=== PATIENT | male | born 1960 | race Caucasian/White ===

== ENCOUNTER 2025-05-03 21:56 | Inpatient (IN) | payer MEDICAID ==
[~2025-05-03] VITALS: Ht 175.3 cm; Wt 62.2 kg
[~2025-05-03 21:56] MED LIST: ALBU18HF12 IH; AMIO200T8 PO; APIX5TAB PO; ATOR20TA65 PO; BENZ1LOZ50 PO; CETI10TA58 PO; CLOT15CR23 TP; DOXY50 PO; FLUT1BLS19 IH; FURO20TA4 PO; IPRA4AER IH; LISI5TAB21 PO; METO25 PO; PRED-729 PO
[2025-05-03] MEDS ORDERED: 0.9% SODIUM CHLORIDE 10 ML SYRINGE IVP PRN (22:45)
[2025-05-03] MEDS: CefTRIAXone 1 GM/DEXTROSE 50 ML IV ONE (23:02)
[2025-05-03] MEDS: SODIUM CHLORIDE 0.9% 1,000 ML IV ONE (23:03)
[2025-05-03 23:07] LABS: PLATELET COUNT (AUTO) 113 K/uL (150-450); RED BLOOD CELL COUNT(AUTO) 4.08 MIL/uL (4.50-5.90); RED CELL DISTRIBUTION WIDTH 13.7 % (11.5-14.5); WHITE BLOOD COUNT (AUTO) 14.3 K/uL (4.5-11.0)
[2025-05-03 23:15] LABS: CALCIUM, TOTAL 9.1 mg/dL (8.8-10.5); CREATININE 1.11 mg/dL (0.60-1.30); GLOMERULAR FILTR. RATE CALC > 60 mL/min (>60); GLUCOSE,RANDOM 131 mg/dL (70-110); SODIUM SERUM 130 mmol/L (136-145); UREA NITROGEN, BLOOD 44 mg/dL (7-18)
[2025-05-03 23:25] LABS: LACTIC ACID 1.8 mmol/L (0.4-2.0); TROPONIN I-HIGH SENSITIVITY 36 ng/L (<76)
[2025-05-04] VITALS (7 sets, daily range): BP systolic 104–124; BP diastolic 58–77; PULSE 59–80; RESP 18–20; TEMP 97.5–98.2; O2SAT 93–98
[2025-05-04] MEDS: IPRATROPIUM BROMIDE 0.5 MG/2.5 ML NEB SOLUTION NEB ONE (00:11)
[2025-05-04] MEDS: ALBUTEROL SULFATE 2.5 MG/0.5 ML NEB SOLUTION NEB ONE (00:11)
[2025-05-04] MEDS: AZITHROMYCIN 500 MG/NS 250 ML IV ONE (00:57)
[2025-05-04 01:03] LABS: COVID AG,FIA SOURCE NASAL SWAB
[2025-05-04 01:15] LABS: APPEARANCE,URINE CLEAR (CLEAR); GLUCOSE, URINE (UA) NEGATIVE (NEGATIVE); LEUKOCYTE ESTERASE ,URINE NEGATIVE (NEGATIVE); NITRATE,URINE NEGATIVE (NEGATIVE); OCCULT BLOOD,URINE NEGATIVE (NEGATIVE); SPECIFIC GRAVITIY, URINE 1.022 (1.003-1.030)
[2025-05-04 01:19] LABS: INFLUENZA TYPE A NEGATIVE FOR TYPE A (NEGATIVE); INFLUENZA TYPE B NEGATIVE FOR TYPE B (NEGATIVE); SARS-COV2 (COVID) ANTIGEN,FIA Negative (Negative)
[2025-05-04] MEDS: ONDANSETRON HCL 4 MG/2 ML VIAL IVP ONE (02:06)
[2025-05-04] MEDS: FUROSEMIDE 40 MG/4 ML VIAL IVP ONE (05:16)
[2025-05-04] MEDS ORDERED: IPRATROPIUM BROMIDE 0.5 MG/2.5 ML NEB SOLUTION NEB PRN (05:45)
[2025-05-04] MEDS ORDERED: ALBUTEROL SULFATE 2.5 MG/0.5 ML NEB SOLUTION NEB PRN (05:45)
[2025-05-04] MEDS: FUROSEMIDE 20 MG/2 ML VIAL IVP SCH (09:00)
[2025-05-04] MEDS: AMIODARONE HCL 200 MG TABLET PO SCH (09:17)
[2025-05-04] MEDS: METOPROLOL TARTRATE 25 MG TABLET PO SCH (09:18)
[2025-05-04] MEDS: GuaiFENesin SR 600 MG ER TABLET PO SCH (09:18)
[2025-05-04] MEDS: ATORVASTATIN CALCIUM 20 MG TABLET PO SCH (09:18)
[2025-05-04] MEDS: APIXABAN 5 MG TABLET PO SCH (09:18)
[2025-05-04] MEDS: BENZONATATE 100 MG CAPSULE PO SCH (09:18)
[2025-05-04] MEDS ORDERED: 0.9% SODIUM CHLORIDE 10 ML SYRINGE IVP ONE (13:58)
[2025-05-04] MEDS ORDERED: IOHEXOL 350 MG/ML 100 ML VIAL ONE (13:58)
[2025-05-04] MEDS ORDERED: SODIUM CHLORIDE 0.9% 100 ML ONE (13:58)
[2025-05-04 14:24] LABS: ABG BASE EXCESS 2.1 mmol/L (-2.0-3.0); ABG CARBOXYHEMOGLOBIN 0.8 % (0.5-1.5); ABG HCO3 25.6 mmol/L (21.0-28.0); ABG METHEMOGLOBIN 0.0 % (0.0-1.5); ABG OXYGEN CONTENT 17.4 mL/dL (15.0-23.0); ABG OXYGEN SATURATION 90.4 % (94.0-98.0); ABG OXYHEMOGLOBIN 89.7 % (94.0-98.0); ABG PCO2 48 mmHg (32.0-48.0); ABG PH 7.377 (7.350-7.450); ABG TOTAL HEMOGLOBIN 13.8 G/dL (13.5-17.5); FRACTIONATED INSPIRED OXYGEN 21.0 % (21-100.0); PO2, ARTERIAL BG 60.1 mmHg (83.0-108.0); SOURCE, BLOOD GAS ARTERIAL; TEMPERATURE, FAHRENHEIT, BG 98.0 FAHREN (96.0-98.6)
[2025-05-04 14:25] LABS: ALLEN TEST, BLOOD GAS Positive; SITE, BLOOD GAS RT RADIAL
[2025-05-04 14:26] LABS: ABG A-A DIFF O2 32.9 mmHg (10-20.0)
[2025-05-04] MEDS: CETIRIZINE HCL 10 MG TABLET PO PRN (20:34)
[2025-05-04] MEDS: CefTRIAXone 1 GM/DEXTROSE 50 ML IV SCH (23:53)
[2025-05-05] VITALS (10 sets, daily range): BP systolic 105–139; BP diastolic 66–83; PULSE 50–76; RESP 18–20; TEMP 97.5–98.2; O2SAT 92–99
[2025-05-05] MEDS: AZITHROMYCIN 500 MG/NS 250 ML IV SCH (00:16)
[2025-05-05 06:01] LABS: PLATELET COUNT (AUTO) 94 K/uL (150-450); RED BLOOD CELL COUNT(AUTO) 3.84 MIL/uL (4.50-5.90); RED CELL DISTRIBUTION WIDTH 13.5 % (11.5-14.5); WHITE BLOOD COUNT (AUTO) 11.4 K/uL (4.5-11.0)
[2025-05-05 06:09] LABS: CALCIUM, TOTAL 8.8 mg/dL (8.8-10.5); CREATININE 0.94 mg/dL (0.60-1.30); GLOMERULAR FILTR. RATE CALC > 60 mL/min (>60); GLUCOSE,RANDOM 129 mg/dL (70-110); SODIUM SERUM 138 mmol/L (136-145); UREA NITROGEN, BLOOD 46 mg/dL (7-18)
[2025-05-05] MEDS: ALBUTEROL SULFATE 2.5 MG/0.5 ML NEB SOLUTION NEB SCH (09:13)
[2025-05-05] MEDS: IPRATROPIUM BROMIDE 0.5 MG/2.5 ML NEB SOLUTION NEB SCH (09:13)
[2025-05-05] MEDS ORDERED: FUROSEMIDE 20 MG TABLET PO SCH (11:00)
[2025-05-05] MEDS: FUROSEMIDE 20 MG/2 ML VIAL IVP SCH (20:29)
[2025-05-06 00:06] VITALS: BP 107/68; PULSE 56; RESP 16; TEMP 98.1; O2SAT 94
[2025-05-06 04:52] VITALS: BP 119/79; PULSE 55; RESP 18; TEMP 97.7; O2SAT 93
[2025-05-06] MEDS ORDERED: FURO20TA5 PO (06:39)
[2025-05-06 07:13] VITALS: BP 140/82; PULSE 57; RESP 18; TEMP 97.3; O2SAT 95
[2025-05-06 08:00] VITALS: PULSE 70; PULSE 75; RESP 18; O2SAT 98; O2SAT 99
[2025-05-06 11:37] VITALS: BP 126/75; PULSE 60; RESP 16; TEMP 98.6; O2SAT 93
[2025-05-06 14:00] VITALS: PULSE 82; RESP 18; O2SAT 95
== END 2025-05-06 15:25 | disposition home or self-care (01) | DRG 133 ==
LOC: EMS 21:56 → EDH 05-04 05:31 → 5S 05-04 08:25
PROVIDERS: ADMIT Internal Medicine; ATTEND Internal Medicine
DX: J96.00 Acute respiratory failure, unspecified whether with hypoxia or hypercapnia (principal); I50.41 Acute combined systolic (congestive) and diastolic (congestive) heart failure; J15.69 Pneumonia due to other Gram-negative bacteria; R65.11 Systemic inflammatory response syndrome (SIRS) of non-infectious origin with acute organ dysfunction; I11.0 Hypertensive heart disease with heart failure; J44.0 Chronic obstructive pulmonary disease with (acute) lower respiratory infection; Z79.01 Long term (current) use of anticoagulants; I48.20 Chronic atrial fibrillation, unspecified; Z20.822 Contact with and (suspected) exposure to COVID-19; J44.1 Chronic obstructive pulmonary disease with (acute) exacerbation; E78.5 Hyperlipidemia, unspecified; Z79.899 Other long term (current) drug therapy; Z87.891 Personal history of nicotine dependence
CPT/HCPCS: 71045; 71260; 80048; 81003; 82805; 83605; 83880; 84145; 84484; 85025; 85610; 87040; 87804; 93005; 94640; 94760; 99285; J0456; J0696; J1938; J2919; J7030; J7050; 36415-L1; 36415-TC; J7613